=== PATIENT | male | born 1960 | race Caucasian/White ===

== ENCOUNTER 2022-12-19 14:21 | Inpatient (IN) | payer MEDICAID ==
[~2022-12-19] VITALS: Ht 188 cm; Wt 93.4 kg
[2022-12-19] MEDS ORDERED: iron (14:41)
[2022-12-19] MEDS ORDERED: lactulose (14:41)
[2022-12-19] MEDS ORDERED: lasix (14:41)
[2022-12-19] MEDS ORDERED: morphine (14:41)
[2022-12-19 16:31] LABS: EOSINOPHILS % 4.8 % (0.0-5.0); HEMATOCRIT. 34.8 % (42.0-52.0); HEMOGLOBIN. 11.7 g/dL (14.0-18.0); LYMPHOCYTES % 17.7 % (20.0-50.0); MEAN CORPUSCULAR HEMOGLOBIN 27.5 pg (28.0-32.0); MEAN CORPUSCULAR VOLUME 81.6 fL (80.0-94.0); MEAN PLATELET VOLUME 9.2 fl (7.4-10.4); NEUTROPHILS % 67.5 % (40.0-76.0); PLATELET 71 x1000/uL (130-400); RED BLOOD CELL COUNT 4.27 mill/uL (4.7-6.1); RED CELL DISTRIBUTION WIDTH 18.3 % (11.6-14.6)
[2022-12-19 16:37] LABS: CHLORIDE 111 mEq/L (98-107)
[2022-12-19 16:40] LABS: INR 1.2; PROTHROMBIN TIME 12.4 sec (9.6-11.0)
[2022-12-19 19:27] LABS: D-DIMER 0.28 mg/L FEU (<0.50)
[2022-12-19] MEDS ORDERED: KETOROLAC 15MG/ML VIAL IV ONE (19:30)
[2022-12-19] MEDS ORDERED: ASPIRIN 325MG EC TABLET PO ONE (21:30)
[2022-12-20 00:37] VITALS: BP 122/75
[2022-12-20 01:18] VITALS: BP 122/75
[2022-12-20] MEDS ORDERED: LISINOPRIL 20MG TABLET PO NR (03:45)
[2022-12-20] MEDS ORDERED: NALOXONE HCL 0.4MG/ML VIAL IV PRN (03:45)
[2022-12-20] MEDS: HYDROCODONE/ACETAMINOPHEN 10/325MG TABLET PO PRN ×4 (03:53→21:53)
[2022-12-20] MEDS ORDERED: FUROSEMIDE 40MG TABLET PO SCH (07:15)
[2022-12-20 08:00] VITALS: BP 130/79
[2022-12-20 10:23] LABS: *AMPHETAMINES SCREEN URINE NEGATIVE (NEGATIVE); *BARBITURATES SCREEN URINE NEGATIVE (NEGATIVE); *BENZODIAZEPINES SCREEN URINE NEGATIVE (NEGATIVE); *COCAINE SCREEN URINE NEGATIVE (NEGATIVE); CANNABINOID URINE SCREEN NEGATIVE (NEGATIVE); METHADONE URINE SCREEN NEGATIVE (NEGATIVE); OPIATES URINE SCREEN PRESUMTIVE POSITIVE (NEGATIVE); PHENCYCLIDINE URINE SCREEN NEGATIVE (NEGATIVE)
[2022-12-20 11:21] VITALS: BP 111/75
[2022-12-20] MEDS: FUROSEMIDE 40MG/4ML VIAL IVP SCH ×2 (14:03→17:08)
[2022-12-20 16:00] VITALS: BP 127/73
[2022-12-20 20:00] VITALS: BP 104/64
[2022-12-21] VITALS: BP 120/70
[2022-12-21 04:00] VITALS: BP 118/66
[2022-12-21] MEDS: HYDROCODONE/ACETAMINOPHEN 10/325MG TABLET PO PRN ×2 (04:30→08:25)
[2022-12-21 06:34] LABS: CHLORIDE 104 mEq/L (98-107)
[2022-12-21] MEDS: FUROSEMIDE 40MG/4ML VIAL IVP SCH (08:25)
[2022-12-21 08:34] VITALS: BP 113/68
[2022-12-21] MEDS ORDERED: ENOXAPARIN 40MG/0.4ML SYR SUBCUT SCH (09:00)
[2022-12-21] MEDS ORDERED: SPIRONOLACTONE 50MG TABLET PO SCH (09:00)
[2022-12-21 12:00] VITALS: BP 130/78
[2022-12-21] MEDS ORDERED: ALD50 PO (12:31)
[2022-12-21] MEDS ORDERED: FURO-151 MT (12:31)
[2022-12-21 12:34] VITALS: BP 113/66
== END 2022-12-21 14:00 | disposition home or self-care (01) | DRG 951 ==
LOC: ER 14:35 → MICUSO 21:18 → EDBEDREQTM 21:21 → EDBEDREQ 21:21 → 8WST 12-20 01:17
PROVIDERS: ADMIT Internal Medicine; ATTEND Internal Medicine
PROC: 0LBP0ZZ Excision of Left Lower Leg Tendon, Open Approach (ICD-10-PCS; principal; 2022-12-21)
DX: I11.0 Hypertensive heart disease with heart failure (principal); D61.818 Other pancytopenia; E44.1 Mild protein-calorie malnutrition; K76.6 Portal hypertension; I50.40 Unspecified combined systolic (congestive) and diastolic (congestive) heart failure; S81.802A Unspecified open wound, left lower leg, initial encounter; K74.60 Unspecified cirrhosis of liver; I25.10 Atherosclerotic heart disease of native coronary artery without angina pectoris; J44.9 Chronic obstructive pulmonary disease, unspecified; B19.20 Unspecified viral hepatitis C without hepatic coma; M10.9 Gout, unspecified; M19.90 Unspecified osteoarthritis, unspecified site; K64.9 Unspecified hemorrhoids; D64.9 Anemia, unspecified; I83.90 Asymptomatic varicose veins of unspecified lower extremity; Z68.26 Body mass index [BMI] 26.0-26.9, adult; Z59.01 Sheltered homelessness; Z88.0 Allergy status to penicillin; F17.210 Nicotine dependence, cigarettes, uncomplicated; F32.A Depression, unspecified; F41.9 Anxiety disorder, unspecified; G62.9 Polyneuropathy, unspecified; X58.XXXA Exposure to other specified factors, initial encounter; Y93.89 Activity, other specified; Y92.89 Other specified places as the place of occurrence of the external cause; Y99.8 Other external cause status
CPT/HCPCS: 36415; 71045; 80048; 80053; 80305; 83880; 84484; 85025; 85379; 87426; 93005; 93306; 93923; 93970; 99285; J1885; J1940